=== PATIENT | male | born 1985 | race Hispanic/Latino ===

== ENCOUNTER 2017-08-19 02:56 | Emergency (ER) | payer SELFPAY | END 2017-08-19 03:53 | disposition home or self-care (01) | LOC: EDH 02:56 | DX: Z43.3 Encounter for attention to colostomy (principal) ==

== ENCOUNTER 2020-10-26 14:25 | Emergency (ER) | payer SELFPAY | END 2020-10-26 15:48 | LOC: EEVIPCON 14:25 → EDH 14:25 | DX: K94.09 Other complications of colostomy (principal) ==